=== PATIENT | female | born 1965 | race Caucasian/White ===

== ENCOUNTER 2016-10-17 11:41 | Emergency (ER) | payer OTHER ==
[~2016-10-17] VITALS: Ht 154.9 cm; Wt 54.1 kg
[~2016-10-17 11:41] MED LIST: NITROFURANTOIN100 MG PO; ORTHO TRI-CY1 TABLE1
[2016-10-17 12:32] LABS: HEMATOCRIT 39.2 % (36.0-46.0); MCH 29.9 PG (29.0-34.0); MCHC 33.9 G/DL (30.0-36.0); MCV 88.1 FL (83-99); MEAN PLAT.VOLUME 11.3 uM^3 (9.5-12.4); PLATELET COUNT 272 K/uL (156-360); RBC DIS.WIDTH-CV 12.7 % (11.8-14.6); RBC DIS.WIDTH-SD 40.1 % (39-53); RED BLOOD COUNT 4.45 M/uL (3.80-5.20)
[2016-10-17 12:38] LABS: CHLORIDE 107 mEq/L (99-109); POTASSIUM 3.7 mEq/L (3.7-5.4); SODIUM 141 mEq/L (136-147)
[2016-10-17 12:40] LABS: GLUCOSE 80 mg/dL (70-99)
[2016-10-17 12:42] LABS: ANION GAP 9 MEQ/L (2-14)
[2016-10-17 12:44] LABS: GFR ESTIMATE (CALCULATED) > 59 mL/min/
[2016-10-17 12:45] LABS: UREA NITROGEN (BUN) 7 mg/dL (9-23)
[2016-10-17 12:51] LABS: TROP-I INTERPRETATION NEGATIVE; TROPONIN-I < 0.01 ng/mL (0.0-0.30)
[2016-10-17 15:41] LABS: TROP-I INTERPRETATION NEGATIVE; TROPONIN-I < 0.01 ng/mL (0.0-0.30)
[2016-10-17 16:21] VITALS: BP 114/58
== END 2016-10-17 16:22 | disposition home or self-care (01) ==
LOC: EME 11:41
PROVIDERS: Physician Assistant
DX: R07.89 Other chest pain (principal)
CPT/HCPCS: 71020; 80048; 84484; 85027; 93005; 99281; 99284

== ENCOUNTER 2018-01-27 12:20 | Emergency (ER) | payer OTHER ==
[~2018-01-27] VITALS: Ht 154.9 cm; Wt 53.4 kg
[2018-01-27 16:52] VITALS: BP 117/60
== END 2018-01-27 16:54 | disposition home or self-care (01) ==
LOC: EME 12:20
DX: Z03.89 Encounter for observation for other suspected diseases and conditions ruled out (principal); Z88.8 Allergy status to other drugs, medicaments and biological substances; Z91.041 Radiographic dye allergy status
CPT/HCPCS: 99281; 99283